=== PATIENT | female | born 1995 | race African-American/Black ===

== ENCOUNTER 2022-06-14 10:56 | Emergency (ER) | payer OTHER ==
[~2022-06-14] VITALS: Ht 180.3 cm; Wt 73.0 kg
[2022-06-14 10:59] VITALS: BP 155/90
== END 2022-06-14 12:00 | disposition home or self-care (01) ==
LOC: ER 10:56
DX: F11.23 Opioid dependence with withdrawal (principal); Z88.8 Allergy status to other drugs, medicaments and biological substances; Z88.0 Allergy status to penicillin
CPT/HCPCS: 99283